=== PATIENT | female | born 1980 ===

== ENCOUNTER 2024-12-15 06:42 | Day surgery (SDC) | payer OTHER ==
[2024-12-10 12:51] VITALS: BP 109/73
[~2024-12-15] VITALS: Ht 154.9 cm; Wt 89.4 kg
[~2024-12-15 06:42] MED LIST: BENICAR20 MG PO; CLONAZEPAM1 MG PO
[2024-12-15] MEDS ORDERED: CEFTRIAXONE SODIUM 2,000 MG VIAL ONE (09:15)
[2024-12-15] MEDS ORDERED: METRONIDAZOLE/SODIUM CHLORIDE 500 MG/100 ML PIGGYBACK IV ONE ×2 (09:15→09:20)
[2024-12-15] MEDS ORDERED: HEMOSTATIC MATRIX 1 KIT KIT TOP ONE (09:18)
[2024-12-15] MEDS ORDERED: DIBUCAINE 30 GM TUBE ONE (09:18)
[2024-12-15] MEDS ORDERED: POVIDONE-IODINE 118 ML BOTT TOP ONE (09:18)
[2024-12-15] MEDS ORDERED: LIDOCAINE HCL 1%/EPINEPHRINE 20ML VIAL IJ ONE (09:19)
[2024-12-15] MEDS ORDERED: BUPIVACAINE HCL/Mpf 0.5% 10ML VIAL ONE (09:19)
[2024-12-15] MEDS ORDERED: CELECOXIB200 MG PO (09:51)
[2024-12-15] MEDS ORDERED: LEVOFLOXACIN750 MG PO (09:53)
[2024-12-15] MEDS ORDERED: NEURONTIN300 MG PO (09:53)
[2024-12-15] MEDS ORDERED: PERCOCET 5-3251 EACH PO (09:53)
== END 2024-12-15 17:55 | disposition home or self-care (01) ==
LOC: CIR.AMB 06:42
PROVIDERS: ATTEND Surgery
DX: L05.01 Pilonidal cyst with abscess (principal); D17.1 Benign lipomatous neoplasm of skin and subcutaneous tissue of trunk; Z88.1 Allergy status to other antibiotic agents; Z88.0 Allergy status to penicillin; Z91.09 Other allergy status, other than to drugs and biological substances; I10 Essential (primary) hypertension